=== PATIENT | female | born 2005 | race Caucasian/White ===

== ENCOUNTER 2024-03-05 10:31 | Emergency (ER) | payer MEDICAID ==
[~2024-03-05] VITALS: Ht 152.4 cm; Wt 65.8 kg
[2024-03-05 10:35] VITALS: BP_SYST 128; PULSE 72; RESP 18; TEMP 97.4; O2SAT 99
[2024-03-05 12:50] VITALS: BP_SYST 124; PULSE 70; RESP 16; TEMP 97.6; O2SAT 99
== END 2024-03-05 12:49 | disposition home or self-care (01) ==
LOC: SED 10:31
DX: M23.92 Unspecified internal derangement of left knee (principal); M25.562 Pain in left knee; Z79.899 Other long term (current) drug therapy
CPT/HCPCS: 73564; 99283